=== PATIENT | male | born 1955 | race Caucasian/White ===

== ENCOUNTER 2017-01-27 17:29 | Outpatient (CLI) | payer OTHER | END 2017-01-27 17:30 | disposition home or self-care (01) | DX: I82.411 Acute embolism and thrombosis of right femoral vein (principal) ==

== ENCOUNTER 2017-12-19 14:19 | Inpatient (IN) | payer OTHER ==
[2017-12-19 15:38] LABS: BASOPHILS % (AUTO) 0.6 %; EOSINOPHILS % (AUTO) 0.2 %; HGB - HEMOGLOBIN 16.1 g/dL (14.0-18.0); LYMPHOCYTES # (AUTO) 1.6 10^3/uL (1.5-3.5); LYMPHOCYTES % (AUTO) 18.2 %; MEAN CORPUSCULAR HEMOGLOBIN 26.1 pg (27.0-31.0); MEAN CORPUSCULAR VOLUME 78.9 fL (80.0-94.0); MEAN PLATELET VOLUME 7.9 fL (7.4-11.4); MONOCYTES % (AUTO) 11.2 %; NEUTROPHILS # (AUTO) 6.1 10^3/uL (1.5-6.6); NEUTROPHILS % (AUTO) 69.8 %; PLT - PLATELET COUNT 185 10^3/uL (130-450); RED BLOOD COUNT 6.18 10^6/uL (4.70-6.10); RED CELL DISTRIBUTION WIDTH 14.5 % (12.0-15.0); WHITE BLOOD COUNT 8.7 x10^3/uL (4.8-10.8)
[2017-12-19 15:49] LABS: ALBUMIN 4.4 g/dL (3.2-5.5); BILIRUBIN,TOTAL 0.9 mg/dL (0.2-1.0); CREATININE 1.1 mg/dL (0.6-1.2); TOTAL PROTEIN 8.9 g/dL (6.7-8.2)
--- NOTE | 2017-12-19 16:12 | XRAY Report ---
EXAM: CHEST RADIOGRAPHY EXAM DATE: 12/19/2017 03:56 PM. CLINICAL HISTORY: Shortness of air COMPARISON: 06/25/2014. TECHNIQUE: 2 views. FINDINGS: Lungs/Pleura: There is mild decrease in lung volume. There is mild left basilar linear atelectasis. N o consolidative process or pleural effusion. Negative for pneumothorax. Mediastinum: Heart and mediastinal contours are unremarkable. Other: None. IMPRESSION: Mildly decreased lung volume. Otherwise unchanged. [facility] Referring Provider Line: [phone] SITE ID: [id number]
--- NOTE | 2017-12-19 17:00 | ED Physician Documentation ---
PD HPI DYSPNEA - Stated complaint Stated Complaint: SOB - Chief complaint Chief Complaint: Resp - History obtained from History obtained from: Patient - History of Present Illness Timing - onset: How many days ago (few days to a week) Timing - onset during: Light activity Timing - duration: Minutes Timing - details: Abrupt onset (with any activity) Inciting event(s): No: Out of meds, URI, Immobilization/travel Worsened by: Exertion, Laying flat, Coughing Associated symptoms: Wheezing. No: Fever, Cough, Chest pain / discomfort, Palpitations, Bilateral edema, Anxiety Similar symptoms before: Diagnosis (has had PE in the past after an ankle injury. No history of asthma nor CHF.) Recently seen: Not recently seen Review of Systems Ten Systems: 10 systems reviewed and negative Constitutional: denies: Fever, Chills Eyes: denies: Loss of vision, Decreased vision Nose: denies: Rhinorrhea / runny nose, Congestion Throat: denies: Sore throat Cardiac: denies: Chest pain / pressure, Palpitations, Pedal edema, Calf pain Respiratory: reports: Dyspnea, Wheezing. denies: Cough GI: denies: Abdominal Pain, Nausea, Vomiting, Diarrhea, Bloody / black stool Neurologic: denies: Generalized weakness, Focal weakness, Numbness, Difficulty speaking, Altered mental status, Headache, Head injury Endocrine: denies: Easy bruising / bleeding Immunocompromised: denies: Immunocompromised PD PAST MEDICAL HISTORY - Past Medical History Cardiovascular: None Respiratory: None Neuro: None Endocrine/Autoimmune: None GI: None : None HEENT: None Musculoskeletal: None Derm: None - Past Surgical History Past Surgical History: Yes - Present Medications Home Medications: Ambulatory Orders Medication Instructions Recorded Confirmed Cyclobenzaprine [Flexeril] 10 mg PO TID PRN 12/19/17 12/19/17 - Allergies Allergies/Adverse Reactions: Allergies Allergy/AdvReac Type Severity Reaction Status Date / Time No Known Drug Allergies Allergy Verified 12/19/17 15:05 - Living Situation Living Situation: reports: With spouse/s.o. Living Arrangement: reports: At home - Social History Does the pt smoke?: No Smoking Status: Never smoker Does the pt drink ETOH?: Yes Does the pt have substance abuse?: No - Family History Family history: reports: Non contributory - Immunizations Immunizations are current?: Yes - POLST Patient has POLST: No PD ED PE NORMAL - Vitals Vital signs reviewed: Yes - General General: Alert and oriented X 3, No acute distress, Well developed/nourished - HEENT HEENT: Moist mucous membranes, Pharynx benign - Neck Neck: Supple, no meningeal sign, No adenopathy - Cardiac Cardiac: RRR, No murmur - Respiratory Respiratory: No: Clear bilaterally (soem expiratory wheezing noted. ) - Abdomen Abdomen: Soft, Non tender - Male Male : Deferred - Rectal Rectal: Deferred - Back Back: No CVA TTP - Derm Derm: Normal color, Warm and dry - Extremities Extremities: No deformity, No tenderness to palpate, No edema, No calf tenderness / cord - Neuro Neuro: Alert and oriented X 3, No motor deficit, Normal speech Eye Opening: Spontaneous Motor: Obeys Commands Verbal: Oriented GCS Score: 15 Results - Vitals Vitals: Vital Signs - 24 hr 12/19/17 12/19/17 12/19/17 15:03 18:43 19:19 Temperature 36.6 C Heart Rate 86 93 90 Respiratory 18 16 12 Rate Blood Pressure 143/84 H 139/92 H O2 Saturation 96 93 12/19/17 12/19/17 19:29 21:07 Temperature Heart Rate 96 103 H Respiratory 25 H 19 Rate Blood Pressure 137/82 H 123/76 O2 Saturation 100 90 L Oxygen O2 Source Room air Oxygen Flow Rate 2 - EKG (time done) 15:07 Rate: Rate (enter#) (99) Rhythm: NSR [place]: Normal Intervals: Normal AL QRS: Normal Ischemia: Normal ST segments. No: ST elevation c/w ischemia, ST depression - Labs Labs: Laboratory Tests 12/19/17 12/19/17 12/19/17 15:20 15:29 15:29 WBC 8.7 RBC 6.18 H Hgb 16.1 Hct 48.8 MCV 78.9 L MCH 26.1 L MCHC 33.0 RDW 14.5 Plt Count 185 MPV 7.9 Neut # 6.1 Lymph # 1.6 [place] # 1.0 Eos # 0.0 Baso # 0.0 Absolute Nucleated RBC 0.01 Nucleated RBC % 0.1 D-Dimer 3605.0 H Sodium 136 Potassium 3.8 Chloride 98 L Carbon Dioxide 28 Anion Gap 10.0 BUN 15 Creatinine 1.1 Estimated GFR (MDRD) 68 L Glucose 106 H Calcium 9.0 Total Bilirubin 0.9 AST 28 ALT 13 Alkaline Phosphatase 72 Troponin I B-Natriuretic Peptide Total Protein 8.9 H Albumin 4.4 Globulin 4.5 H Albumin/Globulin Ratio 1.0 Lipase 17 L 12/19/17 12/19/17 15:29 15:29 WBC RBC Hgb Hct MCV MCH MCHC RDW Plt Count MPV Neut # Lymph # [place] # Eos # Baso # Absolute Nucleated RBC Nucleated RBC % D-Dimer Sodium Potassium Chloride Carbon Dioxide Anion Gap BUN Creatinine Estimated GFR (MDRD) Glucose Calcium Total Bilirubin AST ALT Alkaline Phosphatase Troponin I 0.04 B-Natriuretic Peptide 34 Total Protein Albumin Globulin Albumin/Globulin Ratio Lipase - Rads (name of study) chest xray Radiology: Prelim report reviewed (no acute process) chest CT-angio Radiology: Prelim report reviewed (multiple clots bilaterally) PD MEDICAL DECISION MAKING - ED course Complexity details: reviewed results, re-evaluated patient (he is hypoxic and dyspneic at rest and with just walking/standing in the room. Tech says his sats were 88-90% at the time just prior to decision about admit or not. Given the degree of dyspnea, consider needing ECHO and oxygen so talked with Dr. Urias hospitalist about in the hospital for further evaluation. Started him on anticoagulation. No obvious source for it at this time. ), considered differential, d/w patient Departure - Departure Disposition: ED Place in Observation Clinical Impression: Hypoxia Dyspnea Qualifiers: Dyspnea type: dyspnea on exertion Qualified Code(s): R06.09 - Other forms of dyspnea Pulmonary emboli Qualifiers: Pulmonary embolism type: other Chronicity: acute Acute cor pulmonale presence: without acute cor pulmonale Qualified Code(s): I26.99 - Other pulmonary embolism without acute cor pulmonale Condition: Stable Record reviewed to determine appropriate education?: Yes Discharge Date/Time: 12/19/17 22:50
[2017-12-19] MEDS ORDERED: ALBUTEROL NEB 2.5 MG/3 ML INH STA (17:27)
[2017-12-19] MEDS ORDERED: SODIUM CHLORIDE 0.9% 1,000 ML IV ONE (19:13)
[2017-12-19] MEDS ORDERED: IOPAMIDOL-300 100 ML VIAL ONE (19:54)
[2017-12-19] MEDS ORDERED: IOPAMIDOL-300 100 ML VIAL IVP ONE ×2 (20:23→21:20)
--- NOTE | 2017-12-19 20:43 | CT Report ---
EXAM: CT ANGIOGRAM CHEST EXAM DATE: 12/19/2017 08:02 PM. CLINICAL HISTORY: Dyspnea for few days; PE in the past; elevated d-d. COMPARISON: 06/25/2014 CT chest. TECHNIQUE: Routine helical imaging was performed through the chest in the pulmonary arterial phase. I V Contrast: 80 mL Isovue 300. Reconstructions: Coronal 3-D MIP reconstructions.Sagittal and coronal. In accordance with CT protocol optimization, one or more of the following dose reduction techniques w ere utilized for this exam: automated exposure control, adjustment of mA and/or KV based on patient s ize, or use of iterative reconstructive technique. FINDINGS: Pulmonary Arteries: Diagnostic quality: Adequate through the segmental arteries. Numerous bilateral segmental and subsegm ental pulmonary artery branch emboli seen with greater clot or non-the left. No main pulmonary artery saddle embolism. RV/LV is within normal limits. There is no interventricular septal bowing. There is no reflux of cont rast material in the IVC. Lungs/Pleura: There is increased attenuation throughout both lungs which may be secondary to mild flu id overload. No pleural effusion or pneumothorax. Mediastinum: Normal. No cardiac enlargement or adenopathy. Thoracic Aorta: Unremarkable. Upper Abdomen: Unremarkable. Other: None. IMPRESSION: 1. Extensive bilateral pulmonary emboli. [facility] The above findings were discussed with Richar by Dr. Chuck Roach at 20:42 hrs on 12/19/17. Referring Provider Line: [phone] SITE ID: [id number]
--- NOTE | 2017-12-19 20:43 | CT Preliminary Report ---
Exam: CT CHEST ANGIO (PE) IMPRESSION: 1. Extensive bilateral pulmonary emboli. [facility] The above findings were discussed with Richar by Dr. Chuck Roach at 20:42 hrs on 12/19/17. SITE ID: [id number]
[2017-12-19] MEDS ORDERED: ENOXAPARIN 80 MG/0.8 ML SYRINGE SUBQ STA (21:04)
[2017-12-19] MEDS ORDERED: RIVAROXABAN 15 MG TABLET PO STA (21:09)
[2017-12-19] MEDS ORDERED: CYCLOBENZAPRINE 10 MG TABLET PO PRN (21:19)
[2017-12-19] MEDS ORDERED: ACETAMINOPHEN 325 MG TABLET PO PRN (21:19)
[2017-12-19] MEDS ORDERED: HYDROcod/ACETAM 5/325 MG TABLET PO PRN (21:19)
[2017-12-19] MEDS ORDERED: ONDANSETRON 4 MG/2 ML VIAL IVP PRN (21:19)
[2017-12-19] MEDS ORDERED: SODIUM CHLORIDE FLUSH 0.9% 10 ML SYRINGE IVP PRN (21:19)
[2017-12-19] MEDS ORDERED: HYDROcod/ACETAM 10 MG/325 MG TABLET PO PRN (21:19)
[2017-12-19] MEDS ORDERED: PROMETHAZINE 25 MG/1 ML VIAL IM PRN (21:19)
[2017-12-19] MEDS ORDERED: PROCHLORPERAZINE 10 MG/2 ML VIAL IVP PRN (21:19)
[2017-12-19] MEDS ORDERED: ZOLPIDEM 5 MG TABLET PO PRN (21:19)
--- NOTE | 2017-12-19 21:49 | HISTORY & PHYSICAL EXAMINATION ---
Chief Complaint - Chief Complaint Chief Complaint: Shortness of air History of Present Illness - Admitted From Admitted From:: Emergency department - History Obtained From Records Reviewed: Yes History obtained from: Patient Exam Limitations: None - History of Present Illness HPI Comment/Other: The patient is a very pleasant 62-year-old gentleman with a past medical history significant for DVT of the right calf about 3 years ago after he suffered an ankle injury for which he was initially treated with Xarelto but then developed a pulmonary embolism and was switched to Coumadin which he took for 2 years and stopped about 1 year ago and chronic back pain who presented to the emergency department with a chief complaint of shortness of breath. The patient states that he was in his normal state of health until 4 days ago when he noticed that he became short of breath when walking uphill. He stated that he did not make much of it but when he looks back this was different from normal. He states that his shortness of breath continued to progress over the next 3 days and yesterday morning he states that it was severe. He states that just with minimal exertion he was getting short of breath. He states that he was loading his truck with his grandkids stuff and had to stop frequently just to catch his breath. Finally this morning when he was at work he was becoming short of breath even at rest and decided to call his primary care physician who then instructed him to go to the emergency department. Patient denies any fevers, chills, cough, orthopnea, increased lower extremity swelling. The patient does admit to some pleuritic chest pain. He denies any palpitations, dizziness, lightheadedness or syncope. The patient denies any headaches, blurred vision, runny nose, sore throat, nasal congestion, difficulty swallowing, abdominal pain, nausea, vomiting, diarrhea, constipation, urinary urgency, urinary frequency, dysuria, increased lower extremity swelling, joint swelling, joint pain, muscle aches, back pain, neck stiffness, recent unintentional weight loss, changes in stool caliber, hematuria, bloody stools, skin changes, hair loss or any focal neurologic deficits. On presentation to the emergency department the patient was afebrile and vital signs were within normal limits in fact the patient was hypertensive. While he stayed in the emergency department the patient did become tachypneic and tachycardic and eventually became hypoxic with oxygen saturation that dropped to 88% on room air. The patient had to be placed on 2 L of oxygen. The patient 's lab work revealed a negative troponin and normal electrolytes with a BNP of 34. Patient's CBC was within normal limits however the patient's d-dimer was significantly elevated. The patient underwent a CT angiogram of his lungs which revealed extensive bilateral pulmonary emboli. The patient's chest x-ray showed mildly decreased lung volume. The patient's EKG showed sinus rhythm with left ventricular hypertrophy. There was no evidence of S1, Q3, T3. Given the patient's hypoxia and extensive bilateral PEs the patient was placed in observation for further monitoring. The patient will be placed on telemetry and oxygen. Patient will need an echocardiogram in the morning and was started on Lovenox for treatment of the pulmonary embolism. History - Past Medical History Cardiovascular: reports: None Respiratory: reports: Other (Pulmonary embolism) Neuro: reports: None Endocrine/Autoimmune: reports: None GI: reports: None : reports: None HEENT: reports: None Musculoskeletal: reports: Chronic back pain Derm: reports: None MRSA Hx?: No Other Past Medical History: DVT of the right leg - Family & Social History Family History: Mother: ( of complications of hip fracture), Father : Alive and Well (Dad still alive and lives at [facility] he is in his 90s) Family History Comment/Other: No history of diabetes, hypercoagulable states, DVTs, PEs or any cancers. Living arrangement: At home Living Situation: With spouse/s.o. Social History Notes: Patient lives in [place], [place]. He lives with his . Him and his have 3 children. He lives in a 3 story house and is fully independent. Originally he is from [place], [place] but has lived in [place] [place] for many years. 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 He has never smoked rarely drinks and denies any illicit drug use. - POLST Patient has POLST: No POLST Status: Full Code Meds/Allgy - Home Medications Home Medications: Ambulatory Orders Medication Instructions Recorded Confirmed Cyclobenzaprine [Flexeril] 10 mg PO TID PRN 12/19/17 12/19/17 - Allergies Allergies/Adverse Reactions: Allergies Allergy/AdvReac Type Severity Reaction Status Date / Time No Known Drug Allergies Allergy Verified 12/19/17 15:05 Review of Systems - Other Findings Other Findings: A comprehensive review of systems was performed the pertinent positives and negatives are stated above in the HPI and the remainder of the review of systems is negative. Exam - Vital Signs Reviewed Vital Signs: Yes Vital Signs: Vital Signs x48h Temp Pulse Resp BP Pulse Ox 12/19/17 21:32 105 H 24 127/84 H 97 12/19/17 21:07 103 H 19 123/76 90 L 12/19/17 19:29 96 25 H 137/82 H 100 12/19/17 19:19 90 12 12/19/17 18:43 93 16 139/92 H 93 12/19/17 15:03 36.6 C 86 18 143/84 H 96 - Physical Exam General Appearance: positive: Alert, Mild distress (Patient is tachypneic and does have some mild conversational dyspnea.) Eyes Bilateral: positive: Normal inspection, PERRL, EOMI, No lid inflammation, Conjunctivae nml, No scleral icterus ENT: positive: ENT inspection nml, Pharynx nml, No signs of dehydration. negative: Purulent nasal drainage, Pharyngeal erythema, Oral lesions Neck: positive: Nml inspection, Thyroid nml, No JVD, Trachea midline. negative : Thyromegaly, Lymphadenopathy (R), Lymphadenopathy (L), Stiff neck, Carotid bruit, Tracheal deviation Respiratory: positive: Chest non-tender, Wheezes (Scattered), Rales (Bases), Other (Mild respiratory distress) Cardiovascular: positive: No murmur, No gallop, Tachycardia Peripheral Pulses: positive: 2+ Abdomen: positive: Non-tender, No organomegaly, Nml bowel sounds, No distention. negative: Guarding, Rebound, Hepatomegaly Back: positive: Nml inspection. negative: CVA tenderness (R), CVA tenderness (L ) Skin: positive: Color nml, No rash, Warm. negative: Cyanosis, Diaphoresis, Pallor Extremities: positive: Non-tender, Full ROM, Nml appearance, No pedal edema Neurologic/Psychiatric: positive: Oriented x3, CN's nml (2-12), Motor nml, Sensation nml, Mood/affect nml Conclusion/Plan - Problem List (1) Bilateral pulmonary embolism Conclusion/Plan: Patient has history of DVT and PE. The patient has failed treatment with Xarelto in the past as while he had DVT he developed a PE on Xarelto. This time patient presents with progressive shortness of breath for the last 4 days and is found to have bilateral extensive pulmonary emboli. The patient had stopped his Coumadin about 1 year ago after treatment for 2 years. On presentation the patient is quite short of air and was found to be hypoxic down to 88% on room air. The patient is saturating well with 2 L of oxygen. Plan: Place patient in observation Echocardiogram Start patient on treatment with Lovenox 1 kg/mg subcutaneous twice daily We will need to discuss further with the patient as to which oral options he can be started on depending on his insurance coverage. (2) Hypoxia Conclusion/Plan: The patient had hypoxia as he was requiring 2 L of oxygen. The patient's oxygen saturation dropped to 88% on room air. Hypoxia secondary to his extensive bilateral pulmonary emboli. We will try to wean the patient off oxygen with treatment of his pulmonary embolism. The patient continues to require oxygen he may need to be sent home with home oxygen. We will check an echocardiogram to ensure the patient has normal cardiac function after this PE. (3) Chronic back pain Conclusion/Plan: Patient does have chronic low back pain for which she occasionally takes Flexeril. We will place the patient on Flexeril as needed while he is hospitalized currently his pain is stable Qualifiers: Back pain location: low back pain - Lab Results Lab results reviewed: Yes Fish Bones: 12/19/17 15:29 12/19/17 15:29 Other Lab Results: Laboratory Results WBC 8.7 x10^3/uL (4.8-10.8) 12/19/17 15: RBC 6.18 10^6/uL (4.70-6.10) H 12/19/17 15: Hgb 16.1 g/dL (14.0-18.0) 12/19/17 15: Hct 48.8 % (42.0-52.0) 12/19/17 15: MCV 78.9 fL (80.0-94.0) L 12/19/17 15: MCH 26.1 pg (27.0-31.0) L 12/19/17 15: MCHC 33.0 g/dL (32.0-36.0) 12/19/17 15:29 RDW 14.5 % (12.0-15.0) 12/19/17 15:29 Plt Count 185 10^3/uL (130-450) 12/19/17 15: MPV 7.9 fL (7.4-11.4) 12/19/17 15: Neut # 6.1 10^3/uL (1.5-6.6) 12/19/17 15: Lymph # 1.6 10^3/uL (1.5-3.5) 12/19/17 15: [place] # 1.0 10^3/uL (0.0-1.0) 12/19/17 15: Eos # 0.0 10^3/uL (0.0-0.7) 12/19/17: Baso # 0.0 10^3/uL (0.0-0.1) 12/19/17 15: Absolute Nucleated RBC 0.01 x10^3/uL 12/19/17 15: Nucleated RBC % 0.1 /100WBC 12/19/17 15: D-Dimer 3605.0 ng/mL (200.0-255.0) H 12/19/17 15:20 Sodium 136 mmol/L (135-145) 12/19/17 15: Potassium 3.8 mmol/L (3.5-5.0) 12/19/17 15: Chloride 98 mmol/L (101-111) L 12/19/17 15: Carbon Dioxide 28 mmol/L (21-32) 12/19/17 15: Anion Gap 10.0 (6-13) 12/19/17 15:29 BUN 15 mg/dL (6-20) 12/19/17 15:29 Creatinine 1.1 mg/dL (0.6-1.2) 12/19/17 15:29 Estimated GFR (MDRD) 68 (>89) L 12/19/17 15:29 Glucose 106 mg/dL (70-100) H 12/19/17 15:29 Calcium 9.0 mg/dL (8.5-10.3) 12/19/17 15: Total Bilirubin 0.9 mg/dL (0.2-1.0) 12/19/17 15: AST 28 IU/L (10-42) 12/19/17 15:29 ALT 13 IU/L (10-60) 12/19/17 15:29 Alkaline Phosphatase 72 IU/L (42-121) 12/19/17 15:29 Troponin I 0.04 ng/mL (<0.49) 12/19/17 15:29 B-Natriuretic Peptide 34 pg/mL (5-100) 12/19/17 15:29 Total Protein 8.9 g/dL (6.7-8.2) H 12/19/17 15:29 Albumin 4.4 g/dL (3.2-5.5) 12/19/17 15:29 Globulin 4.5 g/dL (2.1-4.2) H 12/19/17 15:29 Albumin/Globulin Ratio 1.0 (1.0-2.2) 12/19/17 15:29 Lipase 17 U/L (22-51) L 12/19/17 15:29 - Diagnostic Imaging Results Diagnostic Imaging Results: positive: Final report reviewed Diagnostic Imaging Results Comments: EXAM: [id number] [id number] ([id number]) EXAM: CHEST RADIOGRAPHY EXAM DATE: 12/19/2017 03:56 PM. CLINICAL HISTORY: Shortness of air COMPARISON: 06/25/2014. TECHNIQUE: 2 views. FINDINGS: Lungs/Pleura: There is mild decrease in lung volume. There is mild left basilar linear atelectasis. No consolidative process or pleural effusion. Negative for pneumothorax. Mediastinum: Heart and mediastinal contours are unremarkable. Other: None. IMPRESSION: Mildly decreased lung volume. Otherwise unchanged. EXAM: [id number] CT/CHTANG ([id number]) EXAM: CT ANGIOGRAM CHEST EXAM DATE: 12/19/2017 08:02 PM. CLINICAL HISTORY: Dyspnea for few days; PE in the past; elevated d-d. COMPARISON: 06/25/2014 CT chest. TECHNIQUE: Routine helical imaging was performed through the chest in the pulmonary arterial phase. IV Contrast: 80 mL Isovue 300. Reconstructions: Coronal 3-D MIP reconstructions.Sagittal and coronal. In accordance with CT protocol optimization, one or more of the following dose reduction techniques were utilized for this exam: automated exposure control, adjustment of mA and/or KV based on patient size, or use of iterative reconstructive technique. FINDINGS: Pulmonary Arteries: Diagnostic quality: Adequate through the segmental arteries. Numerous bilateral segmental and subsegmental pulmonary artery branch emboli seen with greater clot or non-the left. No main pulmonary artery saddle embolism. RV/LV is within normal limits. There is no interventricular septal bowing. There is no reflux of contrast material in the IVC. Lungs/Pleura: There is increased attenuation throughout both lungs which may be secondary to mild fluid overload. No pleural effusion or pneumothorax. Mediastinum: Normal. No cardiac enlargement or adenopathy. Thoracic Aorta: Unremarkable. Upper Abdomen: Unremarkable. Other: None. IMPRESSION: 1. Extensive bilateral pulmonary emboli. - EKG Results EKG Interpreted Independently: Yes EKG Findings: Left ventricular hypertrophy. Sinus rhythm with no ST elevations or ischemic changes. Core Measures - Anticipated LOS I expect patient to be DC'd or transferred within 96 hours.: Yes - DVT/VTE - Prophylaxis VTE/DVT Prophylaxis med ordered at admit?: Yes
[2017-12-20] MEDS: SODIUM CHLORIDE FLUSH 0.9% 10 ML SYRINGE IVP SCH ×3 (01:11→18:28)
[2017-12-20 05:09] LABS: BASOPHILS # (AUTO) 0.1 10^3/uL (0.0-0.1); BASOPHILS % (AUTO) 0.9 %; EOSINOPHILS % (AUTO) 0.3 %; HGB - HEMOGLOBIN 13.8 g/dL (14.0-18.0); LYMPHOCYTES # (AUTO) 2.1 10^3/uL (1.5-3.5); LYMPHOCYTES % (AUTO) 26.6 %; MEAN CORPUSCULAR HEMOGLOBIN 26.4 pg (27.0-31.0); MEAN CORPUSCULAR HGB CONC 33.4 g/dL (32.0-36.0); MEAN PLATELET VOLUME 7.8 fL (7.4-11.4); MONOCYTES # (AUTO) 0.7 10^3/uL (0.0-1.0); MONOCYTES % (AUTO) 9.5 %; NEUTROPHILS # (AUTO) 4.9 10^3/uL (1.5-6.6); NEUTROPHILS % (AUTO) 62.7 %; PLT - PLATELET COUNT 141 10^3/uL (130-450); RED BLOOD COUNT 5.23 10^6/uL (4.70-6.10); RED CELL DISTRIBUTION WIDTH 14.4 % (12.0-15.0); WHITE BLOOD COUNT 7.7 x10^3/uL (4.8-10.8)
[2017-12-20 05:17] LABS: INR 2.1 (0.8-1.2); PT - PROTHROMBIN TIME 22.8 secs (9.9-12.6)
[2017-12-20 05:28] LABS: ALBUMIN 3.5 g/dL (3.2-5.5); BILIRUBIN,TOTAL 0.8 mg/dL (0.2-1.0); CALCIUM 7.9 mg/dL (8.5-10.3); CREATININE 1.1 mg/dL (0.6-1.2); MAGNESIUM 1.9 mg/dL (1.7-2.8); PHOSPHORUS 3.5 mg/dL (2.5-4.6); TOTAL PROTEIN 6.9 g/dL (6.7-8.2)
[2017-12-20] MEDS ORDERED: RIVAROXABAN 15 MG TABLET PO SCH (08:00)
[2017-12-20] MEDS: FAMOTIDINE 20 MG TABLET PO SCH (10:00)
[2017-12-20] MEDS: ENOXAPARIN 80 MG/0.8 ML SYRINGE SUBQ SCH ×2 (10:00→21:15)
[2017-12-20] MEDS: POLYETHYLENE GLYCOL 3350 17 GM PACKET PO SCH (10:00)
[2017-12-20] MEDS: WARFARIN 5 MG TABLET PO SCH (14:48)
--- NOTE | 2017-12-20 18:40 | PROVIDER PROGRESS NOTE ---
Assessment/Plan - Problem List (1) Bilateral pulmonary embolism Assessment/Plan: Patient has history of DVT and PE. The patient has failed treatment with Xarelto in the past as while he had DVT he developed a PE on Xarelto. Patient was taken off all anticoagulation a few years ago and instructed to take Xarelto PRN while traveling. The patient now is found to have bilateral extensive pulmonary emboli. The patient continues on 2 L of oxygen. Due to insurance restrictions, the patient was started on Coumadin and bridged with Lovenox. Today INR 2.0. Plan: Continue to monitor labs, including INR and recommend continued oxygen use and incentive spirometry. (2) Chronic back pain Qualifiers: Back pain location: low back pain Assessment/Plan: Patient does have chronic low back pain for which she occasionally takes Flexeril, which has been kept on his medication list while in the hospital. He has not needed to take this. His back injury occurred in 2006 after he fell from scaffolding. Plan: Continue current plan. (3) Hypoxia Assessment/Plan: The patient was only at 88% on room air at the time of admission, and has been on supplemental oxygen since that time. We will check an echocardiogram to ensure the patient has normal cardiac function after this PE. Echocardiogram was completed and EF is 55-60%, with mildly elevated RVSP of 40 mmHg. Plan: Continue to monitor VS. - Current Meds Current Meds: Current Medications Generic Name Dose Route Start Last Admin Trade Name Freq PRN Reason Stop Dose Admin Enoxaparin Sodium 90 mg 12/20/17 09:00 12/20/17 10:00 Lovenox SUBQ 90 mg BID GREG Administration Famotidine 20 mg 12/20/17 09:00 12/20/17 10:00 Pepcid PO Not Given DAILY GREG Polyethylene Glycol 17 gm 12/20/17 09:00 12/20/17 10:00 Miralax PO Not Given DAILY GREG Sodium Chloride 10 ml 12/20/17 01:00 12/20/17 18:28 Normal Saline Flush 0.9% IVP 10 ml 0100,0900,1700 GREG Administration Warfarin Sodium 5 mg 12/20/17 14:00 12/20/17 14:48 Coumadin PO 5 mg QDWARFARIN GREG Administration - Lab Result Lab results reviewed: Yes Fish Bone Diagrams: 12/20/17 05:03 12/22/17 05:25 - EKG Results EKG Interpreted Independently: Yes - Diagnostic Imaging Results Diagnostic Imaging Results: Prelim report reviewed, Final report reviewed - Additional Planning Condition/Complexity: Improved My Orders: My Active Orders 12/20/17 14:51 Admit \ Transfer \ Status [RC] .ONCE Plan Discussed with:: Patient, Spouse Time Spent: 31-60 minutes Subjective - Subjective Patient Reports: Fatigue, Shortness of Breath (while ambulating) Nursing Reports: No Complaints Objective Vital Signs: Vital Signs - 24 hr 12/20/17 16:00 Temperature 36.6 C Heart Rate [ 87 Brachial] Respiratory 18 Rate Blood Pressure 131/88 H [Right Brachial artery] O2 Saturation 3 L Oxygen O2 Source Nasal cannula I&O (Last 24 Hrs): Intake and Output Totals x24h 12/18/17 12/19/17 12/20/17 23:59 23:59 23:59 Intake Total 200 Balance 200 General: Alert, Oriented x3, Cooperative, No acute distress HEENT: Atraumatic, PERRLA Neck: Supple, No JVD, No thyromegaly Lymphatic: no adenopathy Neuro: Alert, CN 2-12 Grossly Intact, Oriented Times 3 Cardiovascular: Regular rate, Normal S1, Normal S2 Respiratory: Chest non-tender, No respiratory distress, Other (diminished t/o) Abdomen: Normal bowel sounds, Soft, No tenderness, No masses Extremities: No clubbing, No edema, No tenderness/swelling Skin: No rashes, No breakdown, No significant lesion - Results Results: Laboratory Results WBC 7.7 x10^3/uL (4.8-10.8) 12/20/17 05:03 RBC 5.23 10^6/uL (4.70-6.10) 12/20/17 05:03 Hgb 13.8 g/dL (14.0-18.0) L 12/20/17 05:03 Hct 41.3 % (42.0-52.0) L 12/20/17 05:03 MCV 79.0 fL (80.0-94.0) L 12/20/17 05:03 MCH 26.4 pg (27.0-31.0) L 12/20/17 05:03 MCHC 33.4 g/dL (32.0-36.0) 12/20/17 05:03 RDW 14.4 % (12.0-15.0) 12/20/17 05:03 Plt Count 141 10^3/uL (130-450) 12/20/17 05:03 MPV 7.8 fL (7.4-11.4) 12/20/17 05:03 Neut # 4.9 10^3/uL (1.5-6.6) 12/20/17 05:03 Lymph # 2.1 10^3/uL (1.5-3.5) 12/20/17 05:03 Person # 0.7 10^3/uL (0.0-1.0) 12/20/17 05:03 Eos # 0.0 10^3/uL (0.0-0.7) 12/20/17 05:03 Baso # 0.1 10^3/uL (0.0-0.1) 12/20/17 05:03 Absolute Nucleated RBC 0.00 x10^3/uL 12/20/17 05:03 Nucleated RBC % 0.1 /100WBC 12/20/17 05:03 PT 22.8 secs (9.9-12.6) H 12/20/17 05:03 INR 2.1 (0.8-1.2) H 12/20/17 05:03 D-Dimer 3605.0 ng/mL (200.0-255.0) H 12/19/17 15:20 Sodium 134 mmol/L (135-145) L 12/20/17 05:03 Potassium 3.6 mmol/L (3.5-5.0) 12/20/17 05:03 Chloride 100 mmol/L (101-111) L 12/20/17 05:03 Carbon Dioxide 26 mmol/L (21-32) 12/20/17 05:03 Anion Gap 8.0 (6-13) 12/20/17 05:03 BUN 11 mg/dL (6-20) 12/20/17 05:03 Creatinine 1.1 mg/dL (0.6-1.2) 12/20/17 05:03 Estimated GFR (MDRD) 68 (>89) L 12/20/17 05:03 Glucose 102 mg/dL (70-100) H 12/20/17 05:03 Calcium 7.9 mg/dL (8.5-10.3) L 12/20/17 05:03 Phosphorus 3.5 mg/dL (2.5-4.6) 12/20/17 05:03 Magnesium 1.9 mg/dL (1.7-2.8) 12/20/17 05:03 Total Bilirubin 0.8 mg/dL (0.2-1.0) 12/20/17 05:03 AST 22 IU/L (10-42) 12/20/17 05:03 ALT 11 IU/L (10-60) 12/20/17 05:03 Alkaline Phosphatase 55 IU/L (42-121) 12/20/17 05:03 Troponin I 0.04 ng/mL (<0.49) 12/19/17 15:29 B-Natriuretic Peptide 34 pg/mL (5-100) 12/19/17 15:29 Total Protein 6.9 g/dL (6.7-8.2) 12/20/17 05:03 Albumin 3.5 g/dL (3.2-5.5) 12/20/17 05:03 Globulin 3.4 g/dL (2.1-4.2) 12/20/17 05:03 Albumin/Globulin Ratio 1.0 (1.0-2.2) 12/20/17 05:03 Lipase 17 U/L (22-51) L 12/19/17 15:29
[2017-12-21] MEDS: SODIUM CHLORIDE FLUSH 0.9% 10 ML SYRINGE IVP SCH ×3 (01:15→19:42)
[2017-12-21 06:09] LABS: ALBUMIN 3.4 g/dL (3.2-5.5); BILIRUBIN,TOTAL 0.6 mg/dL (0.2-1.0); CALCIUM 8.2 mg/dL (8.5-10.3); CREATININE 1.1 mg/dL (0.6-1.2); TOTAL PROTEIN 6.9 g/dL (6.7-8.2)
[2017-12-21 06:17] LABS: INR 1.4 (0.8-1.2); PT - PROTHROMBIN TIME 15.3 secs (9.9-12.6)
[2017-12-21] MEDS: ENOXAPARIN 100 MG/ML SYRINGE SUBQ SCH ×2 (09:21→20:55)
[2017-12-21] MEDS: FAMOTIDINE 20 MG TABLET PO SCH (09:23)
[2017-12-21] MEDS: POLYETHYLENE GLYCOL 3350 17 GM PACKET PO SCH (09:23)
[2017-12-21] MEDS: WARFARIN 5 MG TABLET PO SCH (14:00)
--- NOTE | 2017-12-21 15:04 | PROVIDER PROGRESS NOTE ---
Assessment/Plan - Problem List (1) Bilateral pulmonary embolism Assessment/Plan: Patient has history of DVT and PE. The patient has failed treatment with Xarelto in the past as while he had DVT he developed a PE on Xarelto. Patient was taken off all anticoagulation a few years ago and instructed to take Xarelto PRN while traveling. The patient now is found to have bilateral extensive pulmonary emboli. The patient continues on 2 L of oxygen. Due to insurance restrictions, the patient was started on Coumadin and bridged with Lovenox. Today INR 4.1, so a few more days of Lovenox is expected. Disease process was reviewed and updated via phone of care plan. Patient continues to complain of "low energy and fatigue". Plan: Continue to monitor labs, including INR and recommend continued oxygen use and incentive spirometry. (2) Chronic back pain Qualifiers: Back pain location: low back pain Assessment/Plan: Patient does have chronic low back pain for which she occasionally takes Flexeril, which has been kept on his medication list while in the hospital. He has not needed to take this. His back injury occurred in 2006 after he fell from scaffolding. Plan: Continue current plan. (3) Hypoxia Assessment/Plan: The patient was only at 88% on room air at the time of admission, and has been on supplemental oxygen since that time. We will check an echocardiogram to ensure the patient has normal cardiac function after this PE. Echocardiogram was completed and EF is 55-60%, with mildly elevated RVSP of 40 mmHg. Patient is encouraged to ambulate in the halls to maintain his stamina. Patient is also agreeable to using a I.S per RT. Plan: Continue to monitor VS. - Current Meds Current Meds: Current Medications Generic Name Dose Route Start Last Admin Trade Name Freq PRN Reason Stop Dose Admin Enoxaparin Sodium 90 mg 12/21/17 09:30 12/21/17 09:21 Lovenox SUBQ 90 mg BID GREG Administration Famotidine 20 mg 12/20/17 09:00 12/21/17 09:23 Pepcid PO Not Given DAILY GREG Polyethylene Glycol 17 gm 12/20/17 09:00 12/21/17 09:23 Miralax PO Not Given DAILY GREG Sodium Chloride 10 ml 12/20/17 01:00 12/21/17 14:01 Normal Saline Flush 0.9% IVP 10 ml 0100,0900,1700 GREG Administration Warfarin Sodium 5 mg 12/20/17 14:00 12/21/17 14:00 Coumadin PO 5 mg QDWARFARIN GREG Administration - Lab Result Lab results reviewed: Yes Fish Bone Diagrams: 12/20/17 05:03 12/22/17 05:25 - EKG Results EKG Interpreted Independently: Yes - Diagnostic Imaging Results Diagnostic Imaging Results: Final report reviewed - Additional Planning Condition/Complexity: Improved My Orders: My Active Orders 12/21/17 11:06 Incentive Spirometry - RT [RC] TID 12/22/17 05:00 PT WITH INR [COAG] DAILYLAB 12/23/17 05:00 PT WITH INR [COAG] DAILYLAB Plan Discussed with:: Patient, Spouse Time Spent: 31-60 minutes Subjective - Subjective Patient Reports: Feeling Better Nursing Reports: No Complaints Objective Vital Signs: Vital Signs - 24 hr 12/20/17 12/20/17 12/20/17 16:00 20:46 23:50 Temperature 36.6 C 36.6 C 36.6 C Heart Rate [ 87 70 72 Brachial] Respiratory 18 18 16 Rate Blood Pressure 131/88 H 107/59 L 114/67 [Right Brachial artery] O2 Saturation 93 96 97 12/21/17 08:17 Temperature 36.9 C Heart Rate [ 83 Brachial] Respiratory 16 Rate Blood Pressure 119/78 [Right Brachial artery] O2 Saturation 97 Oxygen O2 Source Nasal cannula I&O (Last 24 Hrs): Intake and Output Totals x24h 12/19/17 12/20/17 12/21/17 23:59 23:59 23:59 Intake Total 300 870 Balance 300 870 General: Alert, Oriented x3 HEENT: Atraumatic, PERRLA Neck: Supple, No JVD Neuro: Alert, Oriented Times 3 Cardiovascular: Regular rate, Normal S1, Normal S2 Respiratory: Chest non-tender, No respiratory distress, Other (diminished bilaterally, crackles in right base.) Abdomen: Normal bowel sounds, Soft Extremities: No edema, Normal pulses, No tenderness/swelling Skin: No rashes, No breakdown, No significant lesion - Results Results: Laboratory Results WBC 7.7 x10^3/uL (4.8-10.8) 12/20/17 05:03 RBC 5.23 10^6/uL (4.70-6.10) 12/20/17 05:03 Hgb 13.8 g/dL (14.0-18.0) L 12/20/17 05:03 Hct 41.3 % (42.0-52.0) L 12/20/17 05:03 MCV 79.0 fL (80.0-94.0) L 12/20/17 05:03 MCH 26.4 pg (27.0-31.0) L 12/20/17 05:03 MCHC 33.4 g/dL (32.0-36.0) 12/20/17 05:03 RDW 14.4 % (12.0-15.0) 12/20/17 05:03 Plt Count 141 10^3/uL (130-450) 12/20/17 05:03 MPV 7.8 fL (7.4-11.4) 12/20/17 05:03 Neut # 4.9 10^3/uL (1.5-6.6) 12/20/17 05:03 Lymph # 2.1 10^3/uL (1.5-3.5) 12/20/17 05:03 [place] # 0.7 10^3/uL (0.0-1.0) 12/20/17 05:03 Eos # 0.0 10^3/uL (0.0-0.7) 12/20/17 05:03 Baso # 0.1 10^3/uL (0.0-0.1) 12/20/17 05:03 Absolute Nucleated RBC 0.00 x10^3/uL 12/20/17 05:03 Nucleated RBC % 0.1 /100WBC 12/20/17 05:03 PT 15.3 secs (9.9-12.6) H 12/21/17 05:10 INR 1.4 (0.8-1.2) H 12/21/17 05:10 D-Dimer 3605.0 ng/mL (200.0-255.0) H 12/19/17 15:20 Sodium 136 mmol/L (135-145) 12/21/17 05:10 Potassium 3.7 mmol/L (3.5-5.0) 12/21/17 05:10 Chloride 102 mmol/L (101-111) 12/21/17 05:10 Carbon Dioxide 28 mmol/L (21-32) 12/21/17 05:10 Anion Gap 6.0 (6-13) 12/21/17 05:10 BUN 8 mg/dL (6-20) 12/21/17 05:10 Creatinine 1.1 mg/dL (0.6-1.2) 12/21/17 05:10 Estimated GFR (MDRD) 68 (>89) L 12/21/17 05:10 Glucose 98 mg/dL (70-100) 12/21/17 05:10 Calcium 8.2 mg/dL (8.5-10.3) L 12/21/17 05:10 Phosphorus 3.5 mg/dL (2.5-4.6) 12/20/17 05:03 Magnesium 1.9 mg/dL (1.7-2.8) 12/20/17 05:03 Total Bilirubin 0.6 mg/dL (0.2-1.0) 12/21/17 05:10 AST 20 IU/L (10-42) 12/21/17 05:10 ALT 12 IU/L (10-60) 12/21/17 05:10 Alkaline Phosphatase 57 IU/L (42-121) 12/21/17 05:10 Troponin I 0.04 ng/mL (<0.49) 12/19/17 15:29 B-Natriuretic Peptide 34 pg/mL (5-100) 12/19/17 15:29 Total Protein 6.9 g/dL (6.7-8.2) 12/21/17 05:10 Albumin 3.4 g/dL (3.2-5.5) 12/21/17 05:10 Globulin 3.5 g/dL (2.1-4.2) 12/21/17 05:10 Albumin/Globulin Ratio 1.0 (1.0-2.2) 12/21/17 05:10 Lipase 17 U/L (22-51) L 12/19/17 15:29
[2017-12-22] MEDS: SODIUM CHLORIDE FLUSH 0.9% 10 ML SYRINGE IVP SCH ×3 (01:48→20:37)
[2017-12-22 05:54] LABS: INR 1.7 (0.8-1.2); PT - PROTHROMBIN TIME 18.4 secs (9.9-12.6)
[2017-12-22 05:58] LABS: ALBUMIN 3.4 g/dL (3.2-5.5); ALBUMIN/GLOBULIN RATIO 0.9 (1.0-2.2); BILIRUBIN,TOTAL 0.5 mg/dL (0.2-1.0); CALCIUM 8.5 mg/dL (8.5-10.3); TOTAL PROTEIN 7.1 g/dL (6.7-8.2)
[2017-12-22] MEDS: ENOXAPARIN 100 MG/ML SYRINGE SUBQ SCH ×2 (07:54→20:35)
[2017-12-22] MEDS: FAMOTIDINE 20 MG TABLET PO SCH (08:00)
[2017-12-22] MEDS: POLYETHYLENE GLYCOL 3350 17 GM PACKET PO SCH (08:00)
--- NOTE | 2017-12-22 08:05 | PROVIDER PROGRESS NOTE ---
Assessment/Plan - Problem List (1) Bilateral pulmonary embolism Assessment/Plan: Patient has history of DVT and PE. The patient has failed treatment with Xarelto in the past as while he had DVT he developed a PE on Xarelto. Patient was taken off all anticoagulation a few years ago and instructed to take Xarelto PRN while traveling. The patient now is found to have bilateral extensive pulmonary emboli. The patient continues on 2 L of oxygen. Due to insurance restrictions, the patient was started on Coumadin and bridged with Lovenox. Today INR 1.7, so a few more days of Lovenox is expected. Disease process was reviewed and updated via phone of care plan. Patient continues to complain of "low energy and fatigue". Plan: Continue to monitor labs, including INR, a walking oxygen saturation test is pending, and recommend continued oxygen use and incentive spirometry. (2) Chronic back pain Qualifiers: Back pain location: low back pain Assessment/Plan: Patient does have chronic low back pain for which she occasionally takes Flexeril, which has been kept on his medication list while in the hospital. He has not needed to take this. His back injury occurred in 2006 after he fell from scaffolding. He continues to have no complaints of pain and has been increasing his activity by ambulating in the halls with staff and with his . Plan: Continue current plan. (3) Hypoxia Assessment/Plan: The patient was only at 88% on room air at the time of admission, and has been on supplemental oxygen since that time. We will check an echocardiogram to ensure the patient has normal cardiac function after this PE. Echocardiogram was completed and EF is 55-60%, with mildly elevated RVSP of 40 mmHg. Patient is encouraged to ambulate in the halls to maintain his stamina. Patient is also agreeable to using a I.S per RT. Plan: Continue to monitor VS. (4) Anticoagulated on Coumadin Assessment/Plan: Patient has previously been on warfarin and has been placed on this due to insurance restrictions. Today, INR is sub-therapeutic at 1.7. He is also on Lovenox injections to be used as a bridge to this therapy. Plan: Continue current plan and plan for discharge as early as tomorrow with home Lovenox. - Current Meds Current Meds: Current Medications Generic Name Dose Route Start Last Admin Trade Name Freq PRN Reason Stop Dose Admin Enoxaparin Sodium 90 mg 12/21/17 09:30 12/22/17 07:54 Lovenox SUBQ 90 mg BID GREG Administration Famotidine 20 mg 12/20/17 09:00 12/22/17 08:00 Pepcid PO Not Given DAILY GREG Polyethylene Glycol 17 gm 12/20/17 09:00 12/22/17 08:00 Miralax PO Not Given DAILY GREG Sodium Chloride 10 ml 12/20/17 01:00 12/22/17 07:57 Normal Saline Flush 0.9% IVP 10 ml 0100,0900,1700 GREG Administration Warfarin Sodium 5 mg 12/20/17 14:00 12/21/17 14:00 Coumadin PO 5 mg QDWARFARIN GREG Administration - Lab Result Lab results reviewed: Yes Fish Bone Diagrams: 12/20/17 05:03 12/22/17 05:25 - EKG Results EKG Interpreted Independently: Yes - Diagnostic Imaging Results Diagnostic Imaging Results: Prelim report reviewed, Final report reviewed - Additional Planning Condition/Complexity: Improved My Orders: My Active Orders 12/21/17 11:06 Incentive Spirometry - RT [RC] .TID 12/23/17 05:00 PT WITH INR [COAG] DAILYLAB Plan Discussed with:: Patient, Spouse Time Spent: 15-30 minutes Subjective - Subjective Patient Reports: Feeling Better, Shortness of Breath Nursing Reports: No Complaints Objective Vital Signs: Vital Signs - 24 hr 12/21/17 12/21/17 12/21/17 08:17 15:38 23:42 Temperature 36.9 C 36.8 C 37.0 C Heart Rate [ 83 73 86 Brachial] Respiratory 16 16 16 Rate Blood Pressure 119/78 122/76 110/63 [Right Brachial artery] O2 Saturation 97 99 96 12/22/17 07:43 Temperature 36.7 C Heart Rate [ 73 Brachial] Respiratory 20 Rate Blood Pressure 124/74 [Right Brachial artery] O2 Saturation 97 Oxygen O2 Source Room air I&O (Last 24 Hrs): Intake and Output Totals x24h 12/20/17 12/21/17 12/22/17 23:59 23:59 23:59 Intake Total 300 1190 150 Balance 300 1190 150 General: Alert, Oriented x3, No acute distress HEENT: Atraumatic, PERRLA Neck: Supple, No JVD, No thyromegaly Lymphatic: no adenopathy Neuro: Alert, CN 2-12 Grossly Intact, Oriented Times 3 Cardiovascular: Regular rate, Normal S1, Normal S2, No murmurs Respiratory: Chest non-tender, No respiratory distress, Other (diminished with scattered crackles bilaterally.) Abdomen: Normal bowel sounds, Soft, No tenderness, No masses Extremities: No clubbing, No edema, No tenderness/swelling Skin: No rashes, No breakdown, No significant lesion - Results Results: Laboratory Results WBC 7.7 x10^3/uL (4.8-10.8) 12/20/17 05:03 RBC 5.23 10^6/uL (4.70-6.10) 12/20/17 05:03 Hgb 13.8 g/dL (14.0-18.0) L 12/20/17 05:03 Hct 41.3 % (42.0-52.0) L 12/20/17 05:03 MCV 79.0 fL (80.0-94.0) L 12/20/17 05:03 MCH 26.4 pg (27.0-31.0) L 12/20/17 05:03 MCHC 33.4 g/dL (32.0-36.0) 12/20/17 05:03 RDW 14.4 % (12.0-15.0) 12/20/17 05:03 Plt Count 141 10^3/uL (130-450) 12/20/17 05:03 MPV 7.8 fL (7.4-11.4) 12/20/17 05:03 Neut # 4.9 10^3/uL (1.5-6.6) 12/20/17 05:03 Lymph # 2.1 10^3/uL (1.5-3.5) 12/20/17 05:03 [place] # 0.7 10^3/uL (0.0-1.0) 12/20/17 05:03 Eos # 0.0 10^3/uL (0.0-0.7) 12/20/17 05:03 Baso # 0.1 10^3/uL (0.0-0.1) 12/20/17 05:03 Absolute Nucleated RBC 0.00 x10^3/uL 12/20/17 05:03 Nucleated RBC % 0.1 /100WBC 12/20/17 05:03 PT 18.4 secs (9.9-12.6) H 12/22/17 05:25 INR 1.7 (0.8-1.2) H 12/22/17 05:25 D-Dimer 3605.0 ng/mL (200.0-255.0) H 12/19/17 15:20 Sodium 136 mmol/L (135-145) 12/22/17 05:25 Potassium 4.0 mmol/L (3.5-5.0) 12/22/17 05:25 Chloride 100 mmol/L (101-111) L 12/22/17 05:25 Carbon Dioxide 30 mmol/L (21-32) 12/22/17 05:25 Anion Gap 6.0 (6-13) 12/22/17 05:25 BUN 9 mg/dL (6-20) 12/22/17 05:25 Creatinine 1.0 mg/dL (0.6-1.2) 12/22/17 05:25 Estimated GFR (MDRD) 75 (>89) L 12/22/17 05:25 Glucose 101 mg/dL (70-100) H 12/22/17 05:25 Calcium 8.5 mg/dL (8.5-10.3) 12/22/17 05:25 Phosphorus 3.5 mg/dL (2.5-4.6) 12/20/17 05:03 Magnesium 1.9 mg/dL (1.7-2.8) 12/20/17 05:03 Total Bilirubin 0.5 mg/dL (0.2-1.0) 12/22/17 05:25 AST 20 IU/L (10-42) 12/22/17 05:25 ALT 16 IU/L (10-60) 12/22/17 05:25 Alkaline Phosphatase 56 IU/L (42-121) 12/22/17 05:25 Troponin I 0.04 ng/mL (<0.49) 12/19/17 15:29 B-Natriuretic Peptide 34 pg/mL (5-100) 12/19/17 15:29 Total Protein 7.1 g/dL (6.7-8.2) 12/22/17 05:25 Albumin 3.4 g/dL (3.2-5.5) 12/22/17 05:25 Globulin 3.7 g/dL (2.1-4.2) 12/22/17 05:25 Albumin/Globulin Ratio 0.9 (1.0-2.2) L 12/22/17 05:25 Lipase 17 U/L (22-51) L 12/19/17 15:29
[2017-12-22] MEDS ORDERED: SODIUM CHLORIDE 0.65% NASAL SPRAY NAS PRN (11:27)
[2017-12-22] MEDS: WARFARIN 5 MG TABLET PO SCH (13:35)
[2017-12-23] MEDS: SODIUM CHLORIDE FLUSH 0.9% 10 ML SYRINGE IVP SCH ×2 (03:35→10:08)
[2017-12-23 05:54] LABS: INR 2.4 (0.8-1.2); PT - PROTHROMBIN TIME 25.7 secs (9.9-12.6)
--- NOTE | 2017-12-23 08:16 | DISCHARGE SUMMARY ---
Discharge Summary Admit Date: 12/19/17 Discharge Date: 12/23/17 Discharging Provider: MALICK Parry Primary Care Provider: Chuck Bundy Code Status: Attempt Resuscitation Condition at Discharge: Good Discharge Disposition: 01 Home, Self Care - DIAGNOSES Admission Diagnoses: Other pulmonary embolism without acute cor pulmonale (I26.99) Hypoxemia (R09.02) Dorsalgia, unspecified (M54.9) Discharge Diagnoses with Status of Each Condition: Bilateral pulmonary embolism (I26.99)- new on this admission, improved and treatment to continue. Hypoxia (R09.02)- ongoing, stable. Chronic back pain (M54.9)- chronic, stable. Anticoagulated on Coumadin (Z51.81)- new on this admission, ongoing, and will be monitored by PCP. - HPI History of Present Illness: HPI per Dr. Urias: The patient is a very pleasant 62-year-old gentleman with a past medical history significant for DVT of the right calf about 3 years ago after he suffered an ankle injury for which he was initially treated with Xarelto but then developed a pulmonary embolism and was switched to Coumadin which he took for 2 years and stopped about 1 year ago and chronic back pain who presented to the emergency department with a chief complaint of shortness of breath. The patient states that he was in his normal state of health until 4 days ago when he noticed that he became short of breath when walking uphill. He stated that he did not make much of it but when he looks back this was different from normal. He states that his shortness of breath continued to progress over the next 3 days and yesterday morning he states that it was severe. He states that just with minimal exertion he was getting short of breath. He states that he was loading his truck with his grandkids stuff and had to stop frequently just to catch his breath. Finally this morning when he was at work he was becoming short of breath even at rest and decided to call his primary care physician who then instructed him to go to the emergency department. Patient denies any fevers, chills, cough, orthopnea, increased lower extremity swelling. The patient does admit to some pleuritic chest pain. He denies any palpitations, dizziness, lightheadedness or syncope. The patient denies any headaches, blurred vision, runny nose, sore throat, nasal congestion, difficulty swallowing, abdominal pain, nausea, vomiting, diarrhea, constipation, urinary urgency, urinary frequency, dysuria, increased lower extremity swelling, joint swelling, joint pain, muscle aches, back pain, neck stiffness, recent unintentional weight loss, changes in stool caliber, hematuria, bloody stools, skin changes, hair loss or any focal neurologic deficits. On presentation to the emergency department the patient was afebrile and vital signs were within normal limits in fact the patient was hypertensive. While he stayed in the emergency department the patient did become tachypneic and tachycardic and eventually became hypoxic with oxygen saturation that dropped to 88% on room air. The patient had to be placed on 2 L of oxygen. The patient 's lab work revealed a negative troponin and normal electrolytes with a BNP of 34. Patient's CBC was within normal limits however the patient's d-dimer was significantly elevated. The patient underwent a CT angiogram of his lungs which revealed extensive bilateral pulmonary emboli. The patient's chest x-ray showed mildly decreased lung volume. The patient's EKG showed sinus rhythm with left ventricular hypertrophy. There was no evidence of S1, Q3, T3. Given the patient's hypoxia and extensive bilateral PEs the patient was placed in observation for further monitoring. The patient will be placed on telemetry and oxygen. Patient will need an echocardiogram in the morning and was started on Lovenox for treatment of the pulmonary embolism. - HOSPITAL COURSE Hospital Course: The following diagnoses were prevalent during this hospital stay: (1) Bilateral pulmonary embolism- Patient has history of DVT and PE. The patient has failed treatment with Xarelto in the past as while he had DVT he developed a PE on Xarelto. Patient was taken off all anticoagulation a few years ago and instructed to take Xarelto PRN while traveling. The patient now is found to have bilateral extensive pulmonary emboli. The patient continues on 3 L of oxygen during ambulation, or as needed while hospitalized. Due to insurance restrictions, the patient was started on Coumadin and bridged with Lovenox. Today INR 2.4, so a few more days of Lovenox is expected to be administered over the weekend. Disease process was reviewed and updated via phone and in person during this hospital stay daily to discuss plan of care. Patient continues to complain of "low energy and fatigue". A walking oxygen saturation test was performed and a [id number] exam/ encounter was completed and discussed results to patient and his ; Patient was not found to be hypoxic at rest with a room air oxygen saturation of 95%. However, with ambulation on 1L of oxygen per nasal cannula the patient was only at 84% saturation, on 2L of oxygen per nasal cannula the oxygen was noted to be 88%, and finally, on 3L of oxygen per nasal cannula the oxygen saturation improved to 94%. I am ordering home oxygen at 3L via nasal cannula with exertion to treat hypoxia related to extensive bilateral pulmonary emboli and NO oxygen is needed while the patient is at rest. (2) Chronic back pain- Patient does have chronic low back pain for which she occasionally takes Flexeril, which has been kept on his medication list while in the hospital. He has not needed to take this. His back injury occurred in 2006 after he fell from scaffolding. He continues to have no complaints of pain and has been increasing his activity by ambulating in the halls with staff and with his . (3) Hypoxia- The patient was only at 88% on room air at the time of admission, and has been on supplemental oxygen since that time. We will check an echocardiogram to ensure the patient has normal cardiac function after this PE. Echocardiogram was completed and EF is 55-60%, with mildly elevated RVSP of 40 mmHg. Patient is encouraged to ambulate in the halls to maintain his stamina. Patient is also agreeable to using a Incentive spirometry per RT. (4) Anticoagulated on Coumadin- Patient has previously been on warfarin and has been placed on this due to insurance restrictions. Today, INR is therapeutic at 2.4, although the patient needs to be at least 48 hours of INR greater than 2 to graduate from Lovenox bridging, which will continue through the weekend at home. Both the patient and his admit to a history of previous Lovenox home injections and state that they are comfortable with this. Disposition: The patient steadily improved over the past few days and is now in stable condition at the time of discharge. He was transported via private car home with and is expected to have Lovenox injections for the weekend. He has qualified for supplemental oxygen, which was thankfully arranged by our respiratory care department. - ALLERGIES Allergies/Adverse Reactions: Allergies Allergy/AdvReac Type Severity Reaction Status Date / Time No Known Drug Allergies Allergy Verified 12/19/17 15:05 - MEDICATIONS Home Medications: Ambulatory Orders Medication Instructions Recorded Confirmed Cyclobenzaprine [Flexeril] 10 mg PO TID PRN 12/19/17 12/19/17 Enoxaparin [Lovenox] 80 mg SUBQ Q12H #6 syringe 12/23/17 Warfarin [Coumadin] 2.5 mg PO 1400 #30 tablet 12/23/17 - PHYSICAL EXAM AT DISCHARGE General Appearance: positive: No acute distress, Alert Eyes Bilateral: positive: Normal inspection, PERRL ENT: positive: ENT inspection nml, Pharynx nml, No signs of dehydration Neck: positive: Nml inspection, Thyroid nml, No JVD, Trachea midline Respiratory: positive: Chest non-tender, No respiratory distress, Other ( scattered crackles bilaterally.) Cardiovascular: positive: Regular rate & rhythm, No murmur, No gallop Peripheral Pulses: positive: 2+ Abdomen: positive: Non-tender, No organomegaly, Nml bowel sounds, No distention Back: positive: Nml inspection Skin: positive: No rash, Warm, Dry Extremities: positive: Non-tender, Full ROM, Nml appearance, No pedal edema Neurologic/Psychiatric: positive: Oriented x3, CN's nml (2-12), Motor nml, Sensation nml, Depressed mood/affect Reflexes: Bicep (R): 3+, Bicep (L): 3+ - LABS Result Diagrams: 12/20/17 05:03 12/22/17 05:25 - DIAGNOSTIC IMAGING Diagnostic Imaging Results: Final report reviewed Diagnostic Imaging Results Comments: EXAM: CHEST RADIOGRAPHY EXAM DATE: 12/19/2017 03:56 PM. CLINICAL HISTORY: Shortness of air COMPARISON: 06/25/2014. TECHNIQUE: 2 views. FINDINGS: Lungs/Pleura: There is mild decrease in lung volume. There is mild left basilar linear atelectasis. No consolidative process or pleural effusion. Negative for pneumothorax. Mediastinum: Heart and mediastinal contours are unremarkable. Other: None. IMPRESSION: Mildly decreased lung volume. Otherwise unchanged. EXAM: CT ANGIOGRAM CHEST EXAM DATE: 12/19/2017 08:02 PM. CLINICAL HISTORY: Dyspnea for few days; PE in the past; elevated d-d. COMPARISON: 06/25/2014 CT chest. TECHNIQUE: Routine helical imaging was performed through the chest in the pulmonary arterial phase. IV Contrast: 80 mL Isovue 300. Reconstructions: Coronal 3-D MIP reconstructions.Sagittal and coronal. In accordance with CT protocol optimization, one or more of the following dose reduction techniques were utilized for this exam: automated exposure control, adjustment of mA and/or KV based on patient size, or use of iterative reconstructive technique. FINDINGS: Pulmonary Arteries: Diagnostic quality: Adequate through the segmental arteries. Numerous bilateral segmental and subsegmental pulmonary artery branch emboli seen with greater clot or non-the left. No main pulmonary artery saddle embolism. RV/LV is within normal limits. There is no interventricular septal bowing. There is no reflux of contrast material in the IVC. Lungs/Pleura: There is increased attenuation throughout both lungs which may be secondary to mild fluid overload. No pleural effusion or pneumothorax. Mediastinum: Normal. No cardiac enlargement or adenopathy. Thoracic Aorta: Unremarkable. Upper Abdomen: Unremarkable. Other: None. IMPRESSION: 1. Extensive bilateral pulmonary emboli. - FOLLOW UP Follow Up: Disposition: Home, Self Care Condition: Good Prescriptions: Enoxaparin [Lovenox] 80 mg SUBQ Q12H #6 syringe Warfarin [Coumadin] 2.5 mg PO 1400 #30 tablet Diet: Regular Activity Restrictions: Activity as Tolerated Shower Restrictions: No Driving Restrictions: No Weight Bearing: Full Weight Additional Instructions or Follow Up instructions: You were found to have pulmonary emboli in both lungs when you came to the ED. Due to insurance restrictions, you were started on Coumadin and given another blood thinner to keep your blood thin by giving Lovenox injections. You should have injections 12 hours apart both Tuesday and Tuesday until you can get your blood checked on Tuesday to determine if the shots can be stopped and ensure the correct dose of Coumadin. You were given a loading dose of Coumadin 5mg daily, that will be titrated down to just 2.5mg daily until your blood is checked again on Tuesday. The INR result is trending upward nicely and was last recorded as 2.4 today. Your goal is to stay between 2 and 3. Because of the extent of blood clots, you require oxygen while you are walking or as needed based on your symptoms which has been arranged by our respiratory therapy department for home use. Rest when you are tired and stay off work until you see your PCP; within one week. Continue to use the incentive spirometry to prevent pneumonia. Use THAO stockings to prevent blood pooling and to improve circulation. - TIME SPENT Time Spent in Discharge (Minutes): 60
[2017-12-23] MEDS: ENOXAPARIN 100 MG/ML SYRINGE SUBQ SCH (10:07)
[2017-12-23] MEDS: POLYETHYLENE GLYCOL 3350 17 GM PACKET PO SCH (10:08)
[2017-12-23] MEDS: FAMOTIDINE 20 MG TABLET PO SCH (10:08)
--- NOTE | 2017-12-23 11:48 | Discharge Plan ---
Discharge Plan Disposition: Home, Self Care Condition: Good Prescriptions: Enoxaparin [Lovenox] 80 mg SUBQ Q12H #6 syringe Warfarin [Coumadin] 2.5 mg PO 1400 #30 tablet Diet: Regular Activity Restrictions: Activity as Tolerated Shower Restrictions: No Driving Restrictions: No Weight Bearing: Full Weight Additional Instructions or Follow Up instructions: You were found to have pulmonary emboli in both lungs when you came to the ED. Due to insurance restrictions, you were started on Coumadin and given another blood thinner to keep your blood thin by giving Lovenox injections. You should have injections 12 hours apart both Tuesday and Tuesday until you can get your blood checked on Tuesday to determine if the shots can be stopped and ensure the correct dose of Coumadin. You were given a loading dose of Coumadin 5mg daily, that will be titrated down to just 2.5mg daily until your blood is checked again on Tuesday. The INR result is trending upward nicely and was last recorded as 2.4 today. Your goal is to stay between 2 and 3. Because of the extent of blood clots, you require oxygen while you are walking or as needed based on your symptoms which has been arranged by our respiratory therapy department for home use. Rest when you are tired and stay off work until you see your PCP; within one week. Continue to use the incentive spirometry to prevent pneumonia. Use THAO stockings to prevent blood pooling and to improve circulation. No Smoking: If you smoke, Please STOP! Call for help. Follow-up with: CORIE MURRY MD [Primary Care Provider] -
[2017-12-23 12:06] VITALS: BP 135/79
[2017-12-23] MEDS: WARFARIN 5 MG TABLET PO SCH (12:36)
== END 2017-12-23 12:30 | disposition home or self-care (01) | DRG 176 ==
LOC: ED 14:19 → OBS 21:19 → OBSVTOIN 12-20 14:01 → MS2 12-20 14:01
PROVIDERS: ADMIT Internal Medicine; ATTEND Nurse Practitioner
DX: I26.99 Other pulmonary embolism without acute cor pulmonale (principal); G89.29 Other chronic pain; M54.9 Dorsalgia, unspecified; R09.02 Hypoxemia; Z86.711 Personal history of pulmonary embolism; Z86.718 Personal history of other venous thrombosis and embolism; Z79.899 Other long term (current) drug therapy
CPT/HCPCS: 36415; 71046; 71275; 80053; 83690; 83735; 83880; 84100; 84484; 85025; 85379; 85610; 93005; 93306; 94640; 94761; 96360; 96372; 99284

== ENCOUNTER 2017-12-26 08:00 | Outpatient (CLI) | payer OTHER | END 2017-12-26 08:01 | LOC: LAB.F 08:00 | PROVIDERS: ATTEND Family Medicine | DX: I82.90 Acute embolism and thrombosis of unspecified vein (principal) | CPT/HCPCS: 85610 ==

== ENCOUNTER 2018-01-04 08:44 | Outpatient (CLI) | payer OTHER ==
[2018-01-04 10:38] LABS: INR 1.7 (0.8-1.2); PT - PROTHROMBIN TIME 18.9 secs (9.9-12.6)
== END 2018-01-04 08:45 | disposition home or self-care (01) ==
LOC: LAB.F 08:44
PROVIDERS: ATTEND Family Medicine
DX: I82.90 Acute embolism and thrombosis of unspecified vein (principal); Z12.5 Encounter for screening for malignant neoplasm of prostate
CPT/HCPCS: 36415; 84153; 85610

== ENCOUNTER 2018-01-11 09:14 | Outpatient (CLI) | payer OTHER | END 2018-01-11 09:15 | disposition home or self-care (01) | LOC: LAB.F 09:14 | PROVIDERS: ATTEND Family Medicine | DX: I82.90 Acute embolism and thrombosis of unspecified vein (principal); I26.99 Other pulmonary embolism without acute cor pulmonale | CPT/HCPCS: 85610 ==

== ENCOUNTER 2018-01-19 09:12 | Outpatient (CLI) | payer OTHER | END 2018-01-19 09:13 | disposition home or self-care (01) | LOC: LAB.F 09:12 | PROVIDERS: ATTEND Family Medicine | DX: I82.90 Acute embolism and thrombosis of unspecified vein (principal); I26.99 Other pulmonary embolism without acute cor pulmonale | CPT/HCPCS: 85610 ==

== ENCOUNTER 2018-01-30 09:36 | Outpatient (CLI) | payer OTHER | END 2018-01-30 09:37 | disposition home or self-care (01) | LOC: LAB.F 09:36 | PROVIDERS: ATTEND Family Medicine | DX: I82.90 Acute embolism and thrombosis of unspecified vein (principal); I26.99 Other pulmonary embolism without acute cor pulmonale | CPT/HCPCS: 85610 ==

== ENCOUNTER 2018-02-07 13:10 | Outpatient (CLI) | payer OTHER | END 2018-02-07 13:11 | disposition home or self-care (01) | LOC: LAB.F 13:10 | PROVIDERS: ATTEND Family Medicine | DX: I82.90 Acute embolism and thrombosis of unspecified vein (principal); I26.99 Other pulmonary embolism without acute cor pulmonale | CPT/HCPCS: 85610 ==

== ENCOUNTER 2018-02-22 09:29 | Outpatient (CLI) | payer OTHER | END 2018-02-22 09:30 | disposition home or self-care (01) | LOC: LAB.F 09:29 | PROVIDERS: ATTEND Family Medicine | DX: I82.90 Acute embolism and thrombosis of unspecified vein (principal); I26.99 Other pulmonary embolism without acute cor pulmonale | CPT/HCPCS: 85610 ==